=== PATIENT | male | born 1985 | race African-American/Black ===

== ENCOUNTER 2023-11-14 17:34 | Emergency (ER) | payer SELFPAY ==
[2023-11-14 18:05] VITALS: BP 125/94; PULSE 84; RESP 18; TEMP 98; BMI 30.1
[2023-11-14] MEDS: SODIUM CHLORIDE 0.9% 500 ML INFUS.BAG IV ONE (18:14)
[2023-11-14 18:21] LABS: HEMATOCRIT 47.4 % (35.4-49); HEMOGLOBIN 16.5 G/dL (11.7-16.9); MCH 30.2 pg (25.7-33.7); MCHC 34.9 g/dl (32.0-35.9); MEAN CELL VOLUME 86.7 fl (80-96); MEAN PLT VOLUME 8.4 fl (7.5-11.1); PLATELET COUNT 165.2 10^3/uL (134-434); RBC 5.47 10^6/uL (4.00-5.60); WHITE BLOOD COUNT 5.6 10^3/uL (4.0-10.8)
[2023-11-14 18:33] LABS: PLATELET ESTIMATE ADEQUATE
[2023-11-14 18:40] LABS: ALBUMIN 4.7 g/dl (3.4-5.0); BILIRUBIN,TOTAL 0.7 mg/dl (0.2-1); CALCIUM 9.5 mg/dl (8.5-10.1); MAGNESIUM 1.9 mg/dL (1.8-2.4); PHOSPHOROUS 3.7 (2.5-4.9); POTASSIUM 3.8 mmol/L (3.5-5.1); TOT PROT 7.2 g/dl (6.4-8.2)
== END 2023-11-14 19:15 | disposition home or self-care (01) ==
LOC: FER 17:34
DX: S06.0X0A Concussion without loss of consciousness, initial encounter (principal); R11.10 Vomiting, unspecified; R53.81 Other malaise; K59.1 Functional diarrhea; R55 Syncope and collapse; W22.8XXA Striking against or struck by other objects, initial encounter; Y92.091 Bathroom in other non-institutional residence as the place of occurrence of the external cause; Z20.822 Contact with and (suspected) exposure to COVID-19
CPT/HCPCS: 0241U-QW; 36415; 70450-TC; 80053; 81003; 83735; 84100; 84484; 85027; 87086; 93005; 99285-25